=== PATIENT | female | born 1990 | race African-American/Black ===

== ENCOUNTER 2023-10-30 17:33 | Inpatient (IN) | payer BC ==
[~2023-10-30] VITALS: Ht 167.6 cm; Wt 124.0 kg
[2023-10-30] MEDS: SODIUM CHLORIDE 0.9% 1,000 ML IV ONE ×3 (18:13→21:10)
[2023-10-30 18:17] LABS: CHLORIDE 106 mEq/L (98-107); POTASSIUM 3.3 mEq/L (3.5-5.1); SODIUM 136 mEq/L (136-145)
[2023-10-30 18:18] LABS: CALCIUM 8.9 mg/dL (8.7-10.4); CARBON DIOXIDE 21 mEq/L (21-32)
[2023-10-30 18:23] LABS: CREATININE 0.9 mg/dL (0.6-1.0); GLUCOSE 108 mg/dL (70-105); UREA NITROGEN BLOOD 8 mg/dL (9-23)
[2023-10-30 18:26] LABS: BASOPHILS % 0.4 % (0.0-2.0); DIFFERENTIAL COMMENT 0; HEMATOCRIT. 37.3 % (36.0-48.0); HEMOGLOBIN. 11.8 g/dL (12.0-16.0); LYMPHOCYTES % 11.2 % (20.0-50.0); MEAN CORPUSCULAR HEMOGLOBIN 23.7 pg (28.0-32.0); MEAN CORPUSCULAR HGB CONC 31.7 g/dL (31.0-37.0); MEAN CORPUSCULAR VOLUME 74.6 fL (81.0-99.0); MEAN PLATELET VOLUME 8.9 fl (7.4-10.4); MONOCYTES % 4.9 % (2.0-8.0); NEUTROPHILS % 83.5 % (40.0-76.0); PLATELET 292 x1000/uL (130-400); RED CELL DISTRIBUTION WIDTH 15.6 % (11.6-14.6)
[2023-10-30 18:32] LABS: HCG SCREEN NEGATIVE
[2023-10-30] MEDS: ACETAMINOPHEN 325MG TABLET PO STA (19:42)
[2023-10-30] MEDS: KETOROLAC 30MG/ML VIAL IV STA (19:43)
[2023-10-30] MEDS: METHYLPREDNISOLONE SOD SUCC 125MG/2ML (ACT-O-VIAL) IV ONE (19:44)
[2023-10-30 19:56] LABS: CLARITY URINE CLEAR (CLEAR); COLOR URINE YELLOW (YELLOW); GLUCOSE URINE NEGATIVE (NEGATIVE); KETONES URINE TRACE (NEGATIVE); LEUKOCYTE ESTERASE URINE NEGATIVE (NEGATIVE); NITRITE URINE NEGATIVE (NEGATIVE); OCCULT BLOOD URINE NEGATIVE (NEGATIVE); PH URINE 5.5 (4.5-8.0); PROTEIN URINE NEGATIVE (NEGATIVE); SPECIFIC GRAVITY URINE 1.026 (1.005-1.030); UROBILINOGEN URINE 0.2 E.U./dL (0.2-1.0)
[2023-10-31] VITALS (8 sets, daily range): BP systolic 104–135; BP diastolic 54–95; PULSE 64–116; RESP 18–22; TEMP 96.9–98.1; O2SAT 95
[2023-10-31] MEDS: SODIUM CHLORIDE 0.45% 1,000 ML IV SCH (04:45)
[2023-10-31] MEDS: PANTOPRAZOLE 40MG DR TABLET PO SCH (05:44)
[2023-10-31] MEDS: ENOXAPARIN 30MG/0.3ML SYR SUBCUT SCH (09:51)
[2023-10-31] MEDS: ACETAMINOPHEN 325MG TABLET PO PRN (11:38)
[2023-10-31] MEDS: OSELTAMIVIR 75MG CAPSULE PO SCH (11:41)
[2023-10-31] MEDS: IPRATROPIUM/ALBUTEROL 0.5-3(2.5)MG/3ML NEB HHN PRN (11:46)
[2023-10-31 13:33] LABS: CHLORIDE 110 mEq/L (98-107); POTASSIUM 3.7 mEq/L (3.5-5.1); SODIUM 139 mEq/L (136-145)
[2023-10-31 13:34] LABS: CALCIUM 8.5 mg/dL (8.7-10.4); CARBON DIOXIDE 20 mEq/L (21-32)
[2023-10-31 13:39] LABS: CREATININE 0.8 mg/dL (0.6-1.0); GLUCOSE 187 mg/dL (70-105); UREA NITROGEN BLOOD 8 mg/dL (9-23)
[2023-10-31 13:40] LABS: BASOPHILS % 0.5 % (0.0-2.0); DIFFERENTIAL COMMENT 0; EOSINOPHILS % 0.1 % (0.0-5.0); HEMATOCRIT. 36.6 % (36.0-48.0); HEMOGLOBIN. 11.4 g/dL (12.0-16.0); LYMPHOCYTES % 8.2 % (20.0-50.0); MEAN CORPUSCULAR HEMOGLOBIN 23.5 pg (28.0-32.0); MEAN CORPUSCULAR HGB CONC 31.2 g/dL (31.0-37.0); MEAN CORPUSCULAR VOLUME 75.3 fL (81.0-99.0); MEAN PLATELET VOLUME 9.7 fl (7.4-10.4); MONOCYTES % 1.4 % (2.0-8.0); NEUTROPHILS % 89.8 % (40.0-76.0); PLATELET 273 x1000/uL (130-400); RED BLOOD CELL COUNT 4.86 mill/uL (4.2-5.4); RED CELL DISTRIBUTION WIDTH 16.3 % (11.6-14.6); WHITE BLOOD COUNT 7.9 x1000/uL (4.5-11.0)
[2023-10-31 13:41] LABS: ALANINE AMINOTRANSFERASE 28 IU/L (10-49); ALBUMIN 3.7 g/dL (3.2-4.8); ASPARTATE AMINOTRANSFERASE 22 IU/L (<34); BILIRUBIN TOTAL 0.3 mg/dL (0.1-1.0); PROTEIN TOTAL 6.2 g/dL (6.0-8.3)
[2023-10-31] MEDS ORDERED: MED4 MT (15:16)
[2023-10-31] MEDS ORDERED: TAM75 MT (15:17)
[2023-10-31] MEDS: HYDROCODONE/ACETAMINOPHEN 5/325MG TABLET PO PRN (17:17)
[2023-10-31] MEDS ORDERED: NALOXONE HCL 0.4MG/ML VIAL IV PRN (20:45)
[2023-10-31] MEDS ORDERED: OSELTAMIVIR 75MG CAPSULE PO SCH (21:00)
== END 2023-10-31 18:42 | disposition home or self-care (01) | DRG 194 ==
LOC: ER 17:33 → EDBEDREQ 21:58 → 5WST 22:00 → EDBEDREQ 23:16 → 7EST 10-31 00:52
PROVIDERS: ADMIT Internal Medicine; ATTEND Internal Medicine
DX: J10.1 Influenza due to other identified influenza virus with other respiratory manifestations (principal); J45.901 Unspecified asthma with (acute) exacerbation; Z20.822 Contact with and (suspected) exposure to COVID-19; Z79.899 Other long term (current) drug therapy
CPT/HCPCS: 36415; 71045; 80048; 80053; 81003; 83605; 84443; 84703; 85025; 85379; 87426; 87804; 93005; 94640; 99285; J1650; J1885; J2930; J7030